=== PATIENT | male | born 1975 | race Caucasian/White ===

== ENCOUNTER 2016-06-05 18:01 | Emergency (ER) | payer OTHER ==
[~2016-06-05] VITALS: Ht 172.7 cm; Wt 81.6 kg
[~2016-06-05 18:01] MED LIST: ALBUTEROL0.09 MG/A1 INH; ALPH-E-MIXED-4400 IU PO; ATIVAN0.5 M1 PO; FENOFIBRATE160 M1 PO; FISH OIL CONCEN1 SGL PO; MUCINEX DM 60 M1 TER PO; MULTIVITAMIN1 TAB PO; OLANZAPINE15 MG PO; ZOFRAN4 M1 SL
--- NOTE | 2016-06-05 19:42 | ED GI/GU/ABDOMINAL COMPLAINT ---
History of Present Illness General Chief Complaint: General Adult Stated Complaint: SOB, NAUSEA, CHEST PRESSURE Source: patient, old records Exam Limitations: no limitations Vital Signs & Intake/Output Vital Signs & Intake/Output Vital Signs Date Time Temp Pulse Resp B/P Pulse O2 O2 Flow FiO2 Ox Delivery Rate 06/05 2115 97.9 101 18 161/104 98 06/05 1999 Room Air 06/05 1814 97.1 100 16 132/91 99 Room Air Allergies Coded Allergies: aripiprazole (AKATHISIA 08/22/15) Reconcile Medications Albuterol Sulfate (Albuterol Sulfate Hfa) 0.09 MG/Actuation LENCHO 2 PUFF INH Q4- 6 PRN PRN SHORTNESS OF BREATH 90 MCG PER PUFF Fenofibrate 160 MG TAB 1 TAB PO DAILY CHOLESTEROL (Reported) Lorazepam (Ativan) 0.5 MG TABLET 1 TAB PO DAILY PRN ANXIETY Lorazepam (Ativan) 0.5 MG TABLET 1 TAB PO BIDP PRN ANXIETY EIGHT TABS...[id number] Olanzapine 15 MG TAB 1 TAB PO DAILY MENTAL HEALTH (Reported) OMEGA-3 FATTY ACIDS (Fish Oil Concentrate) 1,000 MG CAPSULE 1 SGL PO DAILY SUPPLEMENT (Reported) Vitamin E ([id number]) 400 IU SGL 2 SGL PO DAILY SUPPLEMENT (Reported) Triage Note: 40 YEAR OLD MALE STATES TAHT HE HAS BEEN HAVING A CHEST PRESSURE FOR THE PAST COUPLE OF DAYS. ALSO COMPLAINS OF BOUGHTS OF NAUSEA. EKG COMPLETED AND SHOWN TO MD. Triage Nurses Notes Reviewed? yes HPI: Patient presents with nausea and intermittent chest pain. Patient states that the nausea lasting approximately 20 minutes resolving on its own. There's been no vomiting. There is no diarrhea. Patient denies any abdominal pain. Patient 's other complaint is intermittent chest pain. Patient states that he feels anxious and then he feels like he can't breathe and then he gets left-sided chest pressure that lasts a few seconds and then goes away. The symptoms have been going on for the past few months. Patient states he has seen a nurse navigator for this and was told that everything was normal. Patient denies any current pain. His last episode of chest pain was earlier this morning. The chest pain was not associated with nausea. Past History Travel History Traveled to [place] past 21 day No Medical History Any Pertinent Medical History? 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 No Review of Systems Review of Systems Constitutional: Reports: no symptoms. EENTM: Reports: no symptoms. Respiratory: Reports: no symptoms. Cardiovascular: Reports: see HPI, chest pain. GI: Reports: see HPI, nausea. Genitourinary: Reports: no symptoms. Musculoskeletal: Reports: no symptoms. Skin: Reports: no symptoms. Neurological/Psychological: Reports: no symptoms. Hematologic/Endocrine: Reports: no symptoms. Immunologic/Allergic: Reports: no symptoms. All Other Systems: Reviewed and Negative Physical Exam Physical Exam General Appearance: well developed/nourished, alert, awake, anxious, mild distress Head: atraumatic, normal appearance Eyes: Bilateral: PERRL, EOMI, other (ANICTERIC). Ears, Nose, Throat, Mouth: hearing grossly normal, moist mucous membrane Neck: normal inspection, supple, full range of motion Respiratory: normal breath sounds, chest non-tender, no respiratory distress, lungs clear Cardiovascular: regular rate/rhythm, normal peripheral pulses Gastrointestinal: normal bowel sounds, soft, non-tender, no organomegaly Back: normal inspection, normal range of motion Extremities: normal range of motion Neurologic/Psych: no motor/sensory deficits, awake, alert, oriented x 3, normal mood/affect Skin: intact, normal color, warm/dry Core Measures ACS in differential dx? Yes ASA ordered for poss ACS? No-ACS ruled out Severe Sepsis Present: No Septic Shock Present: No Progress Differential Diagnosis: AAA, AMI, appendicitis, biliary colic, colon cancer, cholecystitis, diverticulitis, gastritis, hepatitis, ischemic bowel, inflamm bowel dis, pancreatitis Plan of Care: Orders Procedure Date/time Status Telemetry/Screen Printer 06/05 1939 Active TROPONIN LEVEL 06/05 1939 Complete COMPREHENSIVE METABOLIC PANEL 06/05 1939 Complete CBC WITHOUT DIFFERENTIAL 06/05 1939 Complete EKG 06/05 180 Active Laboratory Tests 06/05/16 1950: Anion Gap 17 H, Estimated GFR > 60, BUN/Creatinine Ratio 16.7, Glucose 88, Calcium 10.2, Total Bilirubin 0.6, AST 35, ALT 71, Alkaline Phosphatase 41, Troponin I < 0.01, Total Protein 7.7, Albumin 4.7, Globulin 3.0, Albumin/ Globulin Ratio 1.6, CBC w Diff NO MAN DIFF REQ, RBC 4.77, MCV 87.7, MCH 30.3, RDW 12.9, MPV 8.2, Gran % 73.6, Lymphocytes % 19.3 L, Monocytes % 6.5, Eosinophils % 0.2, Basophils % 0.4, Absolute Granulocytes 4.7, Absolute Lymphocytes 1.2, Absolute Monocytes 0.4, Absolute Eosinophils 0, Absolute Basophils 0, PUBS MCHC 34.5 Initial ED EKG: NSR, no ST T wave changes Prior EKG: unchanged Rhythm Strip: normal sinus rhythm Comments: Patient drank juice in the emergency department without difficulty. Patient denies any further episodes of chest pain. Departure Departure Disposition: HOME OR SELF CARE Condition: Stable Clinical Impression Primary Impression: Upper abdominal pain, unspecified Secondary Impressions: Chest pain, unspecified Qualifiers: Chest pain type: other chest pain Qualified Code: R07.89 - Other chest pain Referrals: ANGELA FRANCISCO MD (PCP/Family) Additional Instructions: RETURN IF SYMPTOMS WORSEN OR FOR ANY CONCERNS Departure Forms: Customer Survey General Discharge Information
[2016-06-05 20:15] LABS: ABSOLUTE BASOPHIL COUNT 0 /CUMM (0.0-0.2); ABSOLUTE EOSINOPHIL COUNT 0 /CUMM (0.0-0.7); ABSOLUTE GRANULOCYTE CT 4.7 /CUMM (1.4-6.5); ABSOLUTE LYMPH COUNT 1.2 /CUMM (1.2-3.4); ABSOLUTE MONOCYTE COUNT 0.4 /CUMM (0.10-0.60); BASOPHIL % 0.4 % (0.0-2.0); EOSINOPHIL % 0.2 % (0-5); GRANULOCYTE % 73.6 % (42.2-75.2); HEMATOCRIT 41.8 % (42-52); MEAN CORPUSCULAR HGB 30.3 PG (27.0-31.0); MEAN CORPUSCULAR HGB CONC 34.5 G/DL (33.0-37.0); MEAN CORPUSCULAR VOLUME 87.7 FL (80.0-94.0); MEAN PLATELET VOLUME 8.2 FL (7.4-10.4); PLATELET COUNT 231 /CUMM (130-400); RBC DISTRIBUTION WIDTH 12.9 % (11.5-14.5); RED BLOOD CELL CT 4.77 /CUMM (4.70-6.10); WHITE BLOOD CELL COUNT 6.4 /CUMM (4.8-10.8)
[2016-06-05 21:30] VITALS: BP 152/94
[2016-06-05] MEDS ORDERED: TRAZODONE HCL50 M1 PO (21:32)
== END 2016-06-05 21:35 ==
LOC: ERH 18:01
PROVIDERS: Emergency Medicine
DX: R10.10 Upper abdominal pain, unspecified (principal); R07.89 Other chest pain
CPT/HCPCS: 93005; 93010

== ENCOUNTER 2016-08-08 05:48 | Emergency (ER) | payer OTHER ==
[~2016-08-08] VITALS: Ht 172.7 cm; Wt 81.6 kg
[~2016-08-08 05:48] MED LIST changes: +TRAZODONE HCL50 M1 PO
--- NOTE | 2016-08-08 06:02 | ED CARDIAC/CP/PALPITATIONS ---
History of Present Illness General Chief Complaint: General Adult Stated Complaint: "I FEEL PRESSURE IN MY CHEST PRESSURE [id number] AGO" Source: patient, old records Exam Limitations: no limitations Vital Signs & Intake/Output Vital Signs & Intake/Output Vital Signs Date Time Temp Pulse Resp B/P Pulse O2 O2 Flow FiO2 Ox Delivery Rate 08/08 844 97.0 80 20 123/86 98 Room Air 08/08 0617 98.0 98 20 122/86 08/08 0528 95 Room Air 08/08 626 97.8 98 18 134/77 95 Room Air 08/08 0513 97.7 105 18 139/85 95 Room Air Allergies Coded Allergies: aripiprazole (AKATHISIA 08/22/15) Reconcile Medications Albuterol Sulfate (Albuterol Sulfate Hfa) 0.09 MG/Actuation LENCHO 2 PUFF INH Q4- 6 PRN PRN SHORTNESS OF BREATH 90 MCG PER PUFF Fenofibrate 160 MG TAB 1 TAB PO DAILY CHOLESTEROL (Reported) Lorazepam 0.5 MG TABLET 1 TAB PO DAILY NEEDED ANIXETY (Reported) Olanzapine 15 MG TAB 1 TAB PO DAILY MENTAL HEALTH (Reported) Olanzapine 10 MG TABLET 1 TAB PO QPM SLEEP (Reported) OMEGA-3 FATTY ACIDS (Fish Oil Concentrate) 1,000 MG CAPSULE 1 SGL PO DAILY SUPPLEMENT (Reported) Trazodone HCl 50 MG TABLET 1 TAB PO QPM SLEEP (Reported) Vitamin E ([id number]) 400 IU SGL 2 SGL PO DAILY SUPPLEMENT (Reported) Triage Nurses Notes Reviewed? yes HPI: Patient presents with a 20 minute history of congested pressure feeling in the left central portion of his chest. The pain was constant and then relieved when he came into the emergency room. There was no radiation. The pressure was moderate when he had it and is currently 0. There are no aggravating or mitigating factors. Patient states that he has had these symptoms a few times in the past so wants to make sure he does not have congestive heart failure. Patient denies any dyspnea on exertion or orthopnea. There is no anorexia. Patient states when he gets this congested pressure feeling he also feels nauseous. Patient has not thrown up. Patient denies any diaphoresis. (CATHERINE HAY,RAIN [place]) Past History Travel History Traveled to [place] past 21 day No Medical History Any Pertinent Medical History? 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 No (CATHERINE HAY,RAIN [place]) Review of Systems Review of Systems Constitutional: Reports: no symptoms. EENTM: Reports: no symptoms. Respiratory: Reports: no symptoms. Cardiovascular: Reports: see HPI, chest pain. GI: Reports: see HPI, nausea. Genitourinary: Reports: no symptoms. Musculoskeletal: Reports: no symptoms. Skin: Reports: no symptoms. Neurological/Psychological: Reports: no symptoms. Hematologic/Endocrine: Reports: no symptoms. Immunologic/Allergic: Reports: no symptoms. All Other Systems: Reviewed and Negative (CATHERINE HAY,RAIN [place]) Physical Exam Physical Exam General Appearance: well developed/nourished, alert, awake, anxious, mild distress Head: atraumatic, normal appearance Eyes: Bilateral: PERRL, EOMI. Ears, Nose, Throat: normal pharynx, normal ENT inspection, hearing grossly normal Neck: normal inspection, supple, full range of motion, NO JVD Respiratory: normal breath sounds, chest non-tender, no respiratory distress, lungs clear Cardiovascular: regular rate/rhythm, normal peripheral pulses Gastrointestinal: normal bowel sounds, soft, non-tender, no organomegaly Back: normal inspection, normal range of motion Extremities: normal inspection, normal capillary refill, normal range of motion, no edema Neurologic/Psych: no motor/sensory deficits, awake, alert, oriented x 3, normal gait, normal mood/affect Skin: intact, normal color, warm/dry Lymphatic: no anterior cervical ellen Core Measures ACS in differential dx? Yes Severe Sepsis Present: No Septic Shock Present: No (CATHERINE HAY,RAIN [place]) Progress Differential Diagnosis: AMI, CHF/pulm edema, musculoskeletal pain, myocarditis, pericarditis Plan of Care: Orders Procedure Date/time Status Regular Diet 08/08 B Active TROPONIN LEVEL 08/08 1015 Complete Telemetry/Mexican Food Cook 08/08 0609 Active TROPONIN LEVEL 08/08 0558 Complete COMPREHENSIVE METABOLIC PANEL 03/08 0558 Complete CBC WITHOUT DIFFERENTIAL 08/08 557 Complete EKG 08/08 554 Active Laboratory Tests 08/08/16 1013: Troponin I < 0.01 08/08/16 0614: Anion Gap 14, Estimated GFR > 60, BUN/Creatinine Ratio 14.4, Glucose 145 H, Calcium 10.1, Total Bilirubin 0.5, AST 46, ALT 87 H, Alkaline Phosphatase 46, Troponin I < 0.01, Total Protein 7.3, Albumin 4.5, Globulin 2.8, Albumin/ Globulin Ratio 1.6, CBC w Diff NO MAN DIFF REQ, RBC 4.89, MCV 87.7, MCH 30.2, RDW 13.6, MPV 7.6, Gran % 63.0, Lymphocytes % 31.0, Monocytes % 5.3, Eosinophils % 0.2, Basophils % 0.5, Absolute Granulocytes 4.8, Absolute Lymphocytes 2.4, Absolute Monocytes 0.4, Absolute Eosinophils 0, Absolute Basophils 0, PUBS MCHC 34.4 Initial ED EKG: NSR, no ST T wave changes Prior EKG: unchanged Rhythm Strip: normal sinus rhythm Hand-Off Endorsed To: YAMINI HAMPTON MD Endorsed Time: 0700 Pending: labs Comments: Shortly after arriving to the emergency department patient began to dry heave. Patient states that that pressure congested feeling came back. (CATHERINE HAY,RAIN [place]) Comments: 2nd troponin negative. POC discussed with patient (YAMINI HAMPTON MD) Departure Departure Condition: Stable Clinical Impression Primary Impression: Chest pain, unspecified Departure Forms: Customer Survey General Discharge Information (RAIN ALEXANDER MD) Departure Time of Disposition: 1104 Disposition: HOME OR SELF CARE Referrals: Dick WESLEY MD Call for cardiology follow up ANGELA FRANCISCO MD (PCP/Family) Prescriptions: Current Visit Scripts Ondansetron (Zofran Odt) 1 TAB SL TID PRN nausea #15 TAB (YAMINI HAMPTON MD) Critical Care Note Critical Care Note Critical Care Time: non-applicable (RAIN ALEXANDER MD)
[2016-08-08 06:21] LABS: ABSOLUTE BASOPHIL COUNT 0 /CUMM (0.0-0.2); ABSOLUTE EOSINOPHIL COUNT 0 /CUMM (0.0-0.7); ABSOLUTE GRANULOCYTE CT 4.8 /CUMM (1.4-6.5); ABSOLUTE LYMPH COUNT 2.4 /CUMM (1.2-3.4); ABSOLUTE MONOCYTE COUNT 0.4 /CUMM (0.10-0.60); BASOPHIL % 0.5 % (0.0-2.0); EOSINOPHIL % 0.2 % (0-5); HEMATOCRIT 42.9 % (42-52); MEAN CORPUSCULAR HGB 30.2 PG (27.0-31.0); MEAN CORPUSCULAR HGB CONC 34.4 G/DL (33.0-37.0); MEAN CORPUSCULAR VOLUME 87.7 FL (80.0-94.0); MEAN PLATELET VOLUME 7.6 FL (7.4-10.4); PLATELET COUNT 243 /CUMM (130-400); RBC DISTRIBUTION WIDTH 13.6 % (11.5-14.5); RED BLOOD CELL CT 4.89 /CUMM (4.70-6.10); WHITE BLOOD CELL COUNT 7.7 /CUMM (4.8-10.8)
[2016-08-08] MEDS ORDERED: OLANZAPINE10 M1 PO (06:30)
[2016-08-08] MEDS ORDERED: LORAZEPAM0.5 M1 PO (06:30)
[2016-08-08 08:45] VITALS: BP 123/86
[2016-08-08] MEDS ORDERED: ZOFRAN ODT4 M1 SL (11:04)
[2016-08-08] MEDS ORDERED: ATIVAN0.5 M1 PO (11:09)
== END 2016-08-08 11:48 ==
LOC: ERH 05:48
PROVIDERS: Emergency Medicine
DX: R07.89 Other chest pain (principal)
CPT/HCPCS: 93005; 93010; J3101

== ENCOUNTER 2016-11-16 13:18 | Emergency (ER) | payer OTHER ==
[~2016-11-16] VITALS: Ht 172.7 cm; Wt 81.6 kg
[~2016-11-16 13:18] MED LIST changes: +LORAZEPAM0.5 M1 PO; +OLANZAPINE10 M1 PO; +ZOFRAN ODT4 M1 SL
[2016-11-16 13:23] VITALS: BP 159/90
--- NOTE | 2016-11-16 14:21 | ED GENERAL ADULT ---
History of Present Illness General Chief Complaint: General Adult Stated Complaint: MULTI COMPLAINTS Source: patient Exam Limitations: poor historian Vital Signs & Intake/Output Vital Signs & Intake/Output Vital Signs Date Time Temp Pulse Resp B/P B/P Pulse O2 O2 Flow FiO2 Mean Ox Delivery Rate 11/16 1323 97.9 138 20 159/90 97 Room Air Allergies Coded Allergies: aripiprazole (AKATHISIA 08/22/15) Reconcile Medications Fenofibrate 160 MG TABLET 1 TAB PO DAILY CHOLESTEROL (Reported) Fenofibrate 160 MG TABLET 1 TAB PO DAILY HLD Fenofibrate 160 MG TABLET 1 TAB PO DAILY HLD Olanzapine 10 MG TABLET 1 TAB PO QPM SLEEP (Reported) Trazodone HCl 50 MG TABLET 1 TAB PO QPM SLEEP (Reported) Ziprasidone HCl 20 MG CAPSULE 1 CAP PO BID UNKNOWN (Reported) Triage Note: PT REQUESTS REFILL ON GEODON AND TRICOR. PT STATES HE RAN OUT AND FEELS WEAK AND MINIMIZED. TOOK GEODON TODAY BUT RAN OUT OF FENOFIBRATE SATURDAY.PT STATES HE FEELS A LITTLE BIT LIGHT AND HIS HEART IS SCARED. DENIES SI/HI Triage Nurses Notes Reviewed? yes Onset: Abrupt Duration: hour(s): (less than 1 hour), gone now, resolved prior to arrival Timing: single episode today Severity: mild, moderate Severity Numbers: 1 No Modifying Factors: none HPI: 41-year-old male with a past medical history of anxiety bipolar disorder asthma and hyperlipidemia presents for a medication refill. Patient reports he ran out of his TriCor 2 or 3 days ago. since he ran out and having anxiety about his health and is worried that something may happen to his heart due to elevated cholesterol. He denies any chest pain shortness of breath palpitations coughing hemoptysis suicidal ideation homicidal ideation. She does report that "his heart is sad" and asked with this means he says that he is worried something may happen to his heart due to him not taking his cholesterol medication. he reports he currently feels well and that his symptoms resolved about 20 or 30 minutes before presenting to the emergency department. He denies any drug use. No associated symptoms. Patient has a primary care doctor that he can follow-up with this week. (CLEMENTINA CEDENO PA-C) Past History Travel History Traveled to [place] past 21 day No Medical History Any Pertinent Medical History? 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 Yes (CLEMENTINA CEDENO PA-C) Review of Systems Review of Systems Constitutional: Reports: no symptoms. EENTM: Reports: no symptoms. Respiratory: Reports: no symptoms. Cardiovascular: Reports: no symptoms. GI: Reports: no symptoms. Genitourinary: Reports: no symptoms. Musculoskeletal: Reports: no symptoms. Skin: Reports: no symptoms. Neurological/Psychological: Reports: no symptoms. Hematologic/Endocrine: Reports: no symptoms. Immunologic/Allergic: Reports: no symptoms. All Other Systems: Reviewed and Negative (CLEMENTINA CEDENO PA-C) Physical Exam Physical Exam General Appearance: well developed/nourished, no apparent distress, alert, awake , anxious Head: atraumatic, normal appearance Eyes: Bilateral: normal appearance, PERRL, EOMI. Ears, Nose, Throat: normal pharynx, normal ENT inspection Neck: normal inspection, supple, full range of motion, no midline tenderness Respiratory: normal breath sounds, chest non-tender, no respiratory distress, lungs clear Cardiovascular: regular rate/rhythm, normal peripheral pulses Peripheral Pulses: 2+ tibialis posterior (R), 2+ tibialis posterior (L), 2+ dorsalis pedis (R), 2+ dorsalis pedis (L) Gastrointestinal: normal bowel sounds, soft, non-tender, no organomegaly Back: normal inspection, normal range of motion, no vertebral tenderness Extremities: normal inspection, normal capillary refill, normal range of motion, no edema Neurologic/Psych: no motor/sensory deficits, awake, alert, oriented x 3, normal gait, normal mood/affect Reflexes: 2+: knee (R), knee (L). Skin: intact, normal color, warm/dry Lymphatic: no anterior cervical ellen Core Measures ACS in differential dx? Yes CVA/TIA Diagnosis: No Severe Sepsis Present: No Septic Shock Present: No (CLEMENTINA CEDENO PA-C) Progress Differential Diagnoses I considered the following diagnoses in my evaluation of the patient: Panic attack, acute coronary syndrome, medication side effect, viral syndrome, arrhythmia, electrolyte abnormality Plan of Care: Orders Procedure Date/time Status EKG 11/16 1330 Active EKG shows sinus tach but is unchanged from previous. he currently denies any chest pain or shortness of breath and is nontoxic appearing on exam. No HI or SI present. Patient be given a refill for TriCor and told to follow up with his primary care doctor. Advised patient to return to emergency department with any chest pain shortness of breath or any other concerns. (CLEMENTINA CEDENO PA-C) Initial ED EKG: normal intervals, normal p-waves, normal QRS complex, no ST T wave changes, sinus tach Prior EKG: unchanged (CLEMENTINA CEDENO PA-C) Departure Departure Disposition: HOME OR SELF CARE Condition: Stable Clinical Impression Primary Impression: Anxiety about health Referrals: ANGELA FRANCISCO MD (PCP/Family) Additional Instructions: Continue to take all home medications as directed. Follow-up this week with your primary care doctor. Return to the emergency department with any concerns. Departure Forms: Customer Survey General Discharge Information Prescriptions: Current Visit Scripts Fenofibrate 1 TAB PO DAILY #7 TAB Fenofibrate 1 TAB PO DAILY #7 TAB (CLEMENTINA CEDENO PA-C) PA/IS CONSULTANT Co-Sign Statement Statement: ED Attending supervision documentation- [] I saw and evaluated the patient. I have also reviewed all the pertinent lab results and diagnostic results. I agree with the findings and the plan of care as documented in the PA's/IS CONSULTANT's documentation. [x] I have reviewed the ED Record and agree with the PA's/IS CONSULTANT's documentation. [] Additions or exceptions (if any) to the PAs/IS CONSULTANT's note and plan are summarized below: [] (EMILY MONTELONGO DO) Critical Care Note Critical Care Note Critical Care Time: non-applicable (CLEMENTINA CEDENO PA-C)
[2016-11-16] MEDS ORDERED: ZIPRASIDONE HCL20 M1 PO (14:32)
[2016-11-16] MEDS ORDERED: FENOFIBRATE160 M1 PO ×2 (14:41→15:10)
== END 2016-11-16 15:34 ==
LOC: ERH 13:18
DX: F41.9 Anxiety disorder, unspecified (principal)
CPT/HCPCS: 93005; 93010; 99281

== ENCOUNTER 2016-11-28 04:14 | Emergency (ER) | payer OTHER ==
[~2016-11-28] VITALS: Ht 180.3 cm; Wt 83.9 kg
[~2016-11-28 04:14] MED LIST changes: +ZIPRASIDONE HCL20 M1 PO
[2016-11-28 04:26] VITALS: BP 149/94
--- NOTE | 2016-11-28 04:57 | ED PSYCHIATRIC COMPLAINT ---
History of Present Illness General Chief Complaint: General Adult Stated Complaint: PER PT NEEDS DOSE OF GEODON? Source: patient Exam Limitations: no limitations Vital Signs & Intake/Output Vital Signs & Intake/Output ED Intake and Output 11/29 0000 11/28 1200 Intake Total 0 Output Total Balance 0 Intake, Oral 0 Patient 185 lb Weight Weight Reported by Patient Measurement Method Allergies Coded Allergies: aripiprazole (AKATHISIA 11/28/16) Reconcile Medications Fenofibrate 160 MG TABLET 1 TAB PO DAILY CHOLESTEROL (Reported) Olanzapine 10 MG TABLET 1 TAB PO QPM SLEEP (Reported) Trazodone HCl 50 MG TABLET 1 TAB PO QPM SLEEP (Reported) Ziprasidone HCl 20 MG CAPSULE 40 MG PO BID MENTAL HEALTH (Reported) Triage Note: PT TO ED FOR DOSE OF GEODON. 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 Triage Nurses Notes Reviewed? yes HPI: Patient presents for worsening schizoaffective disorder. Patient states that he was just discharged from [facility] this morning but was unable to get his medications because he does not have his city driver's license for identification. His city driver's license is with his sister who is now vacationing in the [facility]. Patient will be able to get his medications later today through his mother. He is requesting a dose of Geodon. The patient denies SI or HI. He denies any other current complaints. Past History Travel History Traveled to [place] past 21 day No Medical History Any Pertinent Medical History? 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 No Review of Systems Review of Systems Constitutional: Reports: no symptoms. EENTM: Reports: no symptoms. Respiratory: Reports: no symptoms. Cardiovascular: Reports: no symptoms. GI: Reports: no symptoms. Genitourinary: Reports: no symptoms. Musculoskeletal: Reports: no symptoms. Skin: Reports: no symptoms. Neurological/Psychological: Reports: no symptoms. Hematologic/Endocrine: Reports: no symptoms. Immunologic/Allergic: Reports: no symptoms. All Other Systems: Reviewed and Negative Physical Exam Physical Exam General Appearance: SEE BELOW Neurological/Psychiatric: SEE BELOW Comments: General: Alert, calm, cooperative Head: Normocephalic, atraumatic Eyes: Normal inspection, no nystagmus, EOMI Ears: Normal inspection Nose: Normal inspection Throat: Moist mucosa Neck: Supple, no goiter Heart: Regular rate and rhythm, no murmurs rubs or gallops Lungs: Clear to auscultation bilaterally with good air entry Abdomen: Soft nontender nondistended, normal bowel sounds Chest: Nontender Extremities: Normal range of motion grossly, no tremors present, no cyanosis clubbing or edema of the upper extremities Neurologic: cranial nerves II through XII grossly intact, speech clear, gait normal Psychiatric: No apparent delusions or hallucinations, no pressured speech or thought blocking SAD PERSONS Done? patient not suicidal Progress Differential Diagnosis: schizoaffective disorder, schizophrenia, acute psychosis Plan of Care: Current Medications Sig/Stu Start time Last Medication Dose Stop Time Status Admin Ziprasidone 60 MG ONCE ONE 11/28 0500 UNVr (Geodon 60 MG Cap) 11/28 0501 Continue current medications. (VILMA HAY,EMILY Morales) Departure Departure Disposition: HOME OR SELF CARE Condition: Stable Clinical Impression Primary Impression: Schizoaffective disorder Qualifiers: Schizoaffective disorder type: unspecified Qualified Code: F25.9 - Schizoaffective disorder, unspecified Referrals: ANGELA FRANCISCO MD (PCP/Family) Additional Instructions: Continue your current medications. Follow-up as outlined by [facility]. Return if any concerns or sudden worsening. Departure Forms: Customer Survey General Discharge Information
== END 2016-11-28 05:25 ==
LOC: ERH 04:14
DX: F25.9 Schizoaffective disorder, unspecified (principal)

== ENCOUNTER 2017-09-06 01:32 | Emergency (ER) | payer OTHER, MEDICARE ==
[~2017-09-06] VITALS: Ht 162.6 cm; Wt 81.6 kg
[~2017-09-06 01:32] MED LIST changes: +ALPRAZOLAM0.5 M4 PO; +ATIVAN1 M1 PO; +FENOFIBRATE145 M1 PO; +GABAPENTIN300 M2 PO; +PROVENTIL HFA6.7 GM INH; +VENTOLIN HFA18 GM INH; -ZIPRASIDONE HCL20 M1 PO; +ZIPRASIDONE HCL60 M1 PO
[2017-09-06 01:57] LABS: ABSOLUTE BASOPHIL COUNT 0.1 /CUMM (0.0-0.2); ABSOLUTE EOSINOPHIL COUNT 0.1 /CUMM (0.0-0.7); ABSOLUTE GRANULOCYTE CT 7.5 /CUMM (1.4-6.5); ABSOLUTE LYMPH COUNT 2.6 /CUMM (1.2-3.4); ABSOLUTE MONOCYTE COUNT 0.9 /CUMM (0.10-0.60); BASOPHIL % 0.9 % (0.0-2.0); EOSINOPHIL % 0.7 % (0-5); GRANULOCYTE % 67.7 % (42.2-75.2); HEMATOCRIT 46.9 % (42-52); MEAN CORPUSCULAR HGB 30.7 PG (27.0-31.0); MEAN CORPUSCULAR VOLUME 87.9 FL (80.0-94.0); MEAN PLATELET VOLUME 7.7 FL (7.4-10.4); PLATELET COUNT 260 /CUMM (130-400); RBC DISTRIBUTION WIDTH 12.7 % (11.5-14.5); RED BLOOD CELL CT 5.34 /CUMM (4.70-6.10); WHITE BLOOD CELL COUNT 11.1 /CUMM (4.8-10.8)
--- NOTE | 2017-09-06 02:43 | ED PSYCHIATRIC COMPLAINT ---
History of Present Illness General Chief Complaint: Psychiatric Related Complaint Stated Complaint: BIBA HI Source: patient, old records, EMS Exam Limitations: no limitations Vital Signs & Intake/Output Vital Signs & Intake/Output Vital Signs Date Time Temp Pulse Resp B/P B/P Pulse O2 O2 Flow FiO2 Mean Ox Delivery Rate 09/06 08 97.1 101 18 135/86 97 Room Air 09/06 0617 97.8 92 18 143/77 97 Room Air 09/06 0231 98.3 105 20 176/87 97 Room Air 09/06 0155 98.4 116 20 190/90 97 Room Air 09/06 0141 Room Air Allergies Coded Allergies: aripiprazole (AKATHISIA 11/28/16) Reconcile Medications Albuterol Sulfate (Proventil Hfa) 90 MCG HFA.AER.AD 2 PUF INH Q4 PRN ASTHMA Albuterol Sulfate (Ventolin Hfa) 90 MCG HFA.AER.AD 2 PUF INH Q4-6 PRN PRN wheeze Fenofibrate Nanocrystallized (Fenofibrate) 145 MG TABLET 1 TAB PO DAILY INCREASED CHOLESTEROL Gabapentin 300 MG CAPSULE 1 CAP PO TID UNKNOWN (Reported) Lorazepam 0.5 MG TABLET 1 TAB PO BIDP PRN ANXIETY (Reported) Ziprasidone HCl 60 MG CAPSULE 1 CAP PO BID MENTAL HEALTH (Reported) Triage Note: PT BIBA FROM HOME FOR +HI, PT UNSURE OF TO WHO. PER PT HX SCHIZOAFFECTIVE DISORDER AND THE PHARMACY WOULD NOT FILL HIS ZIPRASIDONE. PER PT CALLED 911 BECAUSE HE ONLY HAS THESE THOUGHTS WHEN OFF HIS MEDS AND IS AFRAID OF HURTING SOMEONE. CALM AND COOPERATIVE UPON ARRIVAL, SECURITY TO BEDSIDE FOR WANDING. Triage Nurses Notes Reviewed? yes Onset: Just prior to arrival Duration: day(s):, constant, continues in ED, getting worse Timing: recent history Severity: moderate, severe Associated Symptoms: impaired concentration, insomnia HPI: 2 days prior to admission patient ran out of his zisprasidone and has had increased speaking with Daniel and fears he may have killed a childhood friend. He denies fever chills nausea vomiting diarrhea abdominal pain chest pain shortness breath headache dysuria rash bleeding suicidal ideation. (Chris HAY,Fredrick) Past History Travel History Traveled to [place] past 21 day No Medical History Any Pertinent Medical History? see below for history Neurological: NONE EENT: NONE Cardiovascular: hyperlipidemia Respiratory: asthma Gastrointestinal: NONE Hepatic: NONE Renal: NONE Musculoskeletal: NONE Psychiatric: anxiety, bipolar disease, SCHIZOAFFECTIVE D/O Endocrine: NONE Blood Disorders: NONE Cancer(s): NONE BABCOCK TESTER/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: NONE Isolation History: Standard Surgical History Surgical History: non-contributory Psychosocial History Who do you live with Patient/Self What is your primary language Korean Tobacco Use: Never used Family History Hx Contributory? No (Fredrick Perez MD) Review of Systems Review of Systems Constitutional: Reports: no symptoms. EENTM: Reports: no symptoms. Respiratory: Reports: no symptoms. Cardiovascular: Reports: no symptoms. GI: Reports: no symptoms. Genitourinary: Reports: no symptoms. Musculoskeletal: Reports: no symptoms. Skin: Reports: no symptoms. Neurological/Psychological: Reports: see HPI, cognitive dysfunction, confusion. Hematologic/Endocrine: Reports: no symptoms. Immunologic/Allergic: Reports: no symptoms. All Other Systems: Reviewed and Negative (Fredrick Perez MD) Physical Exam Physical Exam General Appearance: well developed/nourished, alert, awake, anxious, severe distress Head: atraumatic, normal appearance Eyes: Bilateral: normal appearance, PERRL, EOMI. Ears, Nose, Throat: normal pharynx, normal ENT inspection, hearing grossly normal Neck: normal inspection, supple, full range of motion, no midline tenderness Respiratory: normal breath sounds, chest non-tender, no respiratory distress, quiet respiration, lungs clear Cardiovascular: regular rate/rhythm, normal peripheral pulses, norml femoral pulses equa Gastrointestinal: normal bowel sounds, soft, non-tender, no organomegaly Extremities: normal range of motion, no ligament instability Neurological/Psychiatric: no motor/sensory deficits, awake, agitated, alert, anxious, physical therapist II-XII nml as tested, oriented x 3 Appearance/Memory/Insight: disheveled, impaired insight Behavoir/Eye Contact/Speech: cooperative, normal speech Thoughts/Hallucinations: delusions, orthodox Skin: intact, normal color, warm/dry SAD PERSONS Done? patient not suicidal (Fredrick Perez MD) Progress Differential Diagnosis: drug intoxication, drug overdose, drug withdrawal, electrolyte abnormality, hypoglycemia Plan of Care: Orders Procedure Date/time Status Regular Diet 09/06 B Active Continuous Observation Monitor 09/06 05 Active Continuous Observation Monitor 09/06 141 Active URINE DRUG SCREEN FOR ER ONLY 09/06 141 Complete ETHANOL 09/06 141 Complete COMPREHENSIVE METABOLIC PANEL 09/06 141 Complete CBC WITHOUT DIFFERENTIAL 09/06 141 Complete ED CRISIS PSYCH CONSULT 09/06 141 Active Current Medications Sig/Stu Start time Last Medication Dose Stop Time Status Admin Albuterol Sulfate 2 PUF Q4-6 PRN PRN 09/06 199 UNVr (Ventolin) Lorazepam 0.5 MG .[BIDP] PRN 09/06 199 UNVr 09/06 (Ativan) 09/13 015 0231 Gabapentin 300 MG TID 09/06 154 UNVr 09/06 (Neurontin) 1005 Ziprasidone 60 MG BID 09/06 154 UNVr 09/06 (Geodon 60 MG Cap) 1005 Laboratory Tests 09/06/17 0250: Urine Opiates Screen < 100, Methadone Screen < 40, Barbiturate Screen < 60, Ur Phencyclidine Scrn < 6.00, Amphetamines Screen < 100, U Benzodiazepines Scrn < 85, Urine Cocaine Screen < 50, Urine Cannabis Screen < 5.00 09/06/17 0150: Anion Gap 19 H, Estimated GFR > 60, BUN/Creatinine Ratio 15.0, Glucose 132 H, Calcium 10.5 H, Total Bilirubin 1.0, AST 36, ALT 39, Alkaline Phosphatase 52, Total Protein 8.5 H, Albumin 5.1 H, Globulin 3.4, Albumin/Globulin Ratio 1.5, CBC w Diff NO MAN DIFF REQ, RBC 5.34, MCV 87.9, MCH 30.7, MCHC 35.0, RDW 12.7, MPV 7.7, Gran % 67.7, Lymphocytes % 23.0, Monocytes % 7.7, Eosinophils % 0.7, Basophils % 0.9, Absolute Granulocytes 7.5 H, Absolute Lymphocytes 2.6, Absolute Monocytes 0.9 H, Absolute Eosinophils 0.1, Absolute Basophils 0.1, Serum Alcohol < 10.0 Hand-Off Endorsed To: Miki Mejia MD Endorsed Time: 0700 Pending: consult (Fredrick Perez MD) Comments: 09/06/2017 7:23:01 AM patient signed out to me 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 09/06/2017 10:29:56 AM cristhian has been evaluated by the crisis condition and felt to be stable for outpatient management. (Jackie HAY,Miki Zamora) Departure Departure Condition: Stable Clinical Impression Primary Impression: Schizophrenia, acute Referrals: Cleve Adam MD (PCP/Family) Departure Forms: Customer Survey General Discharge Information (Chris HAY,Fredrick) Departure Disposition: HOME OR SELF CARE Additional Instructions: Follow-up with your counseling sessions at [facility] and your upcoming medication appointment as well. Notify your primary care physician of this emergency Department visit and treatment plan. Return if any concerns or sudden worsening. Thank you for choosing the [facility] Emergency Department for your care. It was a pleasure to serve you today. Miki Mejia M.D. [facility] (Jackie HAY,Miki Zamora)
[2017-09-06 08:02] VITALS: BP 135/86
--- NOTE | 2017-09-06 09:53 | ED PSYCH CRISIS CONSULTATION ---
Crisis Consult Basic Assessment Date of Consult: 09/06/17 Responsible Person/Accompanied By: self Insurance Authorization: Insurance #1: Insurance name: MEDICARE A Phone number: Policy number: [id number] Group number: Authorization number: ED Provider: Patient's ED Provider: Miki Mejia MD Primary Care Physician: Patient's PCP: Cleve Adam MD PCP's Current Psychiatrist: Myla Garcia APRN Chief Complaint: Psychiatric Related Complaint Patient's Quote: Last night while laying in bed, had thoughts I killed someone in 5th grade Present Illness: Pt self presents to the ED reporting that he is out of his ziprasidone. Pt reports he came to the ED last night because he was laying in bed and was having visions and thoughts that he killed his friend in 5th grade. Pt said he speaks to Daniel daily and through out the day/night yesterday Daniel told pt that "if you don't know what you did then you won't go through my smith". Pt denies HI/SI and denies he felt homicidal last night. He reports he was just trying to distinguish between what was real and what was not. He reports he spoke to his mother who told him he did not kill his friend when he was in 5th grade. The pt seems satisfied with the confirmation from his mother that he did not kill anyone in 5th grade. Pt reports he has been without his medication for 2 days and he is extremely anxious about not being able to have access to his medication. Pt report he tried to pick the prescription up and the refills were denied. Pt is a client at [facility] and Myla Garcia APRN is the prescriber. left for Barbara Manriquez [phone] ([facility] liaison). Crisis spoke with [facility] in [place] ([phone]) and learned that pt picked up ziprasidone 60mg (30 day supply) on 08/23/17 and paid $3. Pt can get another refill on 09/12/17. Pt doesn't recall picking this medication up. Patient reports he would feel safe going home if he had "plenty of medication". When asked what plenty of medication was defined as, pt was able to articulate that if he had enough medication to last until his next refill he would feel as though that would be enough medication. Of note, patient's utox was negative and BAL was zero. Crisis completed the C-SSRS. Pt's only risk factor on the scale was previous psychiatric diagnoses/treatment history. Pt has the following protective factors : identifies a reason for living and has a supportive family. Pt denies SI in his entire lifetime. [facility] called patient's mother, Kaye Ann ([phone]). Mom stated that she was in the ED. Crisis met with mom and pt together. Mom reported that she believes she saw a bottle of the ziprasidone on his table. Pt was adamant that he didn't see it and it's not at home. Mother left to go home to bring the bottle to the ED. Mom showed crisis and pt unopened stock bottle of ziprasidone. Pt asked mom where it was and she told him. Pt was relieved that he has a full bottle of medication. Pt reports he feels safe to go home. Mother reports pt is safe to go home. Crisis received return call from Barbara @ [facility]. Patient's next group at [facility] is 09/12/17 at 10:30 a.m. and next appointment with Myla Garcia APRN is @1:30 p.m. The following safety plan was developed with the pt and mother: 1. Mother will stay with patient in his home through Saturday. 2. Mother and pt will fill patient's pill box with him for 1 week in order to organize his medication 3. Patient or family will call [phone] or return to ED if patient feels as though his symptoms are unmanageable Crisis consulted with Dr. Davison. Pt to be discharged home, follow the above safety plan and [facility]. Patient's Address: [address] [place] [address] Other Phone Number: Who Do You Live With? Patient/Self Family/Informants Interviewed: spoke with mother Kaye Ann (in person), Barbara Manriquez [facility] ([phone] Allergies - Coded Allergies: aripiprazole (AKATHISIA 11/28/16) Current Medications - Scheduled Medications Fenofibrate Nanocrystallized (Fenofibrate) 145 MG TABLET 1 TAB PO DAILY INCREASED CHOLESTEROL #30 TAB Prescribed by Reji Pat MD on 08/23/17 Gabapentin 300 MG CAPSULE 1 CAP PO TID UNKNOWN #90 (Reported) Entered as Reported by Lj Arriaga on 02/11/17 1227 Ziprasidone HCl 60 MG CAPSULE 1 CAP PO BID MENTAL HEALTH (Reported) Entered as Reported by Lj Arriaga on 11/16/16 1432 Scheduled PRN Medications Albuterol Sulfate (Proventil Hfa) 90 MCG HFA.AER.AD 2 PUF INH Q4 PRN ASTHMA #1 INHAL Prescribed by Miki Garcia DO on 01/18/17 Albuterol Sulfate (Ventolin Hfa) 90 MCG HFA.AER.AD 2 PUF INH Q4-6 PRN PRN wheeze #1 INHAL Prescribed by Reji Pat MD on 08/23/17 Lorazepam 0.5 MG TABLET 1 TAB PO BIDP PRN ANXIETY #60 (Reported) Entered as Reported by Lj Arriaga on 02/11/17 1229 Laboratory Results: Laboratory Tests 09/06/17 0250: Urine Opiates Screen < 100, Methadone Screen < 40, Barbiturate Screen < 60, Ur Phencyclidine Scrn < 6.00, Amphetamines Screen < 100, U Benzodiazepines Scrn < 85, Urine Cocaine Screen < 50, Urine Cannabis Screen < 5.00 09/06/17 0150: Anion Gap 19 H, Estimated GFR > 60, BUN/Creatinine Ratio 15.0, Glucose 132 H, Calcium 10.5 H, Total Bilirubin 1.0, AST 36, ALT 39, Alkaline Phosphatase 52, Total Protein 8.5 H, Albumin 5.1 H, Globulin 3.4, Albumin/Globulin Ratio 1.5, CBC w Diff NO MAN DIFF REQ, RBC 5.34, MCV 87.9, MCH 30.7, MCHC 35.0, RDW 12.7, MPV 7.7, Gran % 67.7, Lymphocytes % 23.0, Monocytes % 7.7, Eosinophils % 0.7, Basophils % 0.9, Absolute Granulocytes 7.5 H, Absolute Lymphocytes 2.6, Absolute Monocytes 0.9 H, Absolute Eosinophils 0.1, Absolute Basophils 0.1, Serum Alcohol < 10.0 Past History Past Medical History Neurological: NONE EENT: NONE Cardiovascular: hyperlipidemia Respiratory: asthma Gastrointestinal: NONE Hepatic: NONE Renal: NONE Musculoskeletal: NONE Psychiatric: anxiety, SCHIZOAFFECTIVE D/O Endocrine: NONE Blood Disorders: NONE Cancer(s): NONE 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 SPECIALIST/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: NONE Past Surgical History Surgical History: non-contributory Psychosocial History Strengths/Capabilities: supportive mother and sister engaged in treatment at [facility] lives independantly Physical Limitations (Interventions): none observed Psychiatric Treatment History Psych Treatment Psychiatric Treatment Yes Inpatient Treatment Yes Outpatient Treatment Yes Location of Treatment [facility] 2009,2011,2012; Currently @ [facility], hx IOP @ [facility] Reason for Treatment sx related to schizophrenia Dates of Treatment multiple, see above Response to Treatment pt responds well to medication but at times struggles to take it consistantly Diagnosis by History: schizoaffective d/o Substance Use/Abuse History Drug Use/Abuse Substances Used/Abused No Substance Abuse Treatment Substance Abuse Treatment Past Substance Abuse [place] No Current Mental Status Mental Status Orientation: Person, Place, Situation Affect: Anxious Speech: Soft Neuro-vegetative: Sleep Disturbance Appearance Appearance- Dress/Hygiene: pt presented in hospital issued scrubs, hygiene appeared adequate Behaviors Thought Process: Tangential Thought Content: Paranoid Memory: Impaired Insight: Fair SI/HI Risk Assessment Past Suicidal Ideation/Attempts No Current Suicidal Ideation/Att No Past Homicidal Ideation/Att: No Current Homicidal Ideation/Attempts No Degree of Intent: None Risk Factors: SA/MH hospitalized, lives alone, male Lethality Ratin (mild) PTSD Checklist PTSD Done? 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 He has had several inpatient hospitalizations with the last being in September 2012. Pt is active at [facility] with Myla Garcia APRN. He is enrolled in groups but is attendance is inconsistant. Pt responds well to medications when he takes them. Pt was in the ED as he reported ran out of his Ziprasidone. When mother brought the unopened bottle to the ED, pt was relieved. Pt denies SI/HI and believes he is safe to go home. Mom is in agreement. See safety plan in presenting illness section. Referrals Cleve Adam MD (PCP/Family)
== END 2017-09-06 10:45 ==
LOC: ERH 01:32
PROVIDERS: Emergency Medicine
DX: F23 Brief psychotic disorder (principal)
CPT/HCPCS: 80307; G0463; G0480; J3490

== ENCOUNTER 2017-09-10 19:44 | Emergency (ER) | payer OTHER, MEDICARE ==
[~2017-09-10] VITALS: Ht 167.6 cm; Wt 77.1 kg
--- NOTE | 2017-09-10 23:17 | ED GENERAL ADULT ---
History of Present Illness General Chief Complaint: General Adult Stated Complaint: "CHEST CONGESTION, SLURRED SPEECH, THATS IT" Source: patient Exam Limitations: no limitations Vital Signs & Intake/Output Vital Signs & Intake/Output Vital Signs Date Time Temp Pulse Resp B/P B/P Pulse O2 O2 Flow FiO2 Mean Ox Delivery Rate 09/10 2353 95 18 109/59 95 Room Air 09/10 2014 99.7 112 18 132/83 96 Room Air ED Intake and Output 09/11 0000 09/10 1200 Intake Total 0 Output Total Balance 0 Intake, Oral 0 Patient 170 lb Weight Weight Reported by Patient Measurement Method Allergies Coded Allergies: aripiprazole (AKATHISIA 09/10/17) Reconcile Medications Albuterol Sulfate (Proventil Hfa) 90 MCG HFA.AER.AD 2 PUF INH Q4 PRN ASTHMA Albuterol Sulfate (Ventolin Hfa) 90 MCG HFA.AER.AD 2 PUF INH Q4-6 PRN PRN wheeze Fenofibrate Nanocrystallized (Fenofibrate) 145 MG TABLET 1 TAB PO DAILY INCREASED CHOLESTEROL Gabapentin 300 MG CAPSULE 1 CAP PO TID UNKNOWN (Reported) Lorazepam 0.5 MG TABLET 1 TAB PO BIDP PRN ANXIETY (Reported) Ziprasidone HCl 60 MG CAPSULE 1 CAP PO BID MENTAL HEALTH (Reported) Triage Note: PT FROM HOME C/O CHEST COLD/CONGESTION. PT DENIES COUGH, ARM NUMBNESS/TINGLING, JAW/BACK PAIN. PT STATESS 3-4 EPISODES OF VOMITING AT HOME PRIOR TO ARRIVAL. PT STATES SYMPTOMS BEGAN TODAY 45 MINS PRIOR TO ARRIVAL PTS HR SLIGHTLY TACHY AT 122, RA 98% 02 WITH NO DISTRESS, LOW GRADE TEMP AT 99.7. PTS SISTER SPOKE TO THIS RN PRIVATELY PRIOR TO SEEING PT AND PTS SISTER STATED THAT PT WAS SEEN HERE IN ED LAST WEEK FOR PSYCH RELATED ISSUES AND SHE BELIEVES HIS MEDICATION NEEDS TO BE ADJUSTED. 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 PT SEEMS OUT OF SORTS, A LITTLE UNKEPT. PT TAKES MULTIVITMINS WELL VITAMIN E MULTIPLE AT A TIME. 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 PT DENIES SI/HI. Triage Nurses Notes Reviewed? yes Onset: Gradual Duration: hour(s): Timing: recent history Injury Environment: home Severity: mild Modifying Factors: Worsens With: other (worse w/meds). Associated Symptoms: "I feel sluggish, tired." HPI: 42 yo gentleman h/o schizophrenia, on geodon, presents with a constellation of symptoms including chest heaviness and pain as well as a feeling of fogginess, associated with some slurred speech this evening. He associates this with his geodon. He has had these symptoms off and on for several days. No focal weakness/facial droop. His discomfort has no radiation. He has no diaphoresis, wheezing, cough. Past History Travel History Traveled to [place] past 21 day No Medical History Any Pertinent Medical History? 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 No Review of Systems Review of Systems Constitutional: Reports: no symptoms. EENTM: Reports: no symptoms. Respiratory: Reports: no symptoms. Cardiovascular: Reports: no symptoms. GI: Reports: no symptoms. Genitourinary: Reports: no symptoms. Musculoskeletal: Reports: no symptoms. Skin: Reports: no symptoms. Neurological/Psychological: Reports: no symptoms. Hematologic/Endocrine: Reports: no symptoms. Immunologic/Allergic: Reports: no symptoms. All Other Systems: Reviewed and Negative Physical Exam Physical Exam General Appearance: well developed/nourished, no apparent distress Head: atraumatic, normal appearance Eyes: Bilateral: normal appearance, PERRL, EOMI. Ears, Nose, Throat: normal pharynx, normal ENT inspection Neck: normal inspection, supple, full range of motion Respiratory: normal breath sounds, chest non-tender, no respiratory distress, quiet respiration, lungs clear Cardiovascular: regular rate/rhythm Gastrointestinal: normal bowel sounds, soft, non-tender, no organomegaly Back: normal inspection, normal range of motion Extremities: normal inspection, normal capillary refill, normal range of motion, no edema Neurologic/Psych: no motor/sensory deficits, awake, alert, oriented x 3, flat affect Reflexes: 0: bicep (R), bicep (L), knee (R), knee (L). Skin: intact, normal color Core Measures ACS in differential dx? No CVA/TIA Diagnosis: No Sepsis Present: No Sepsis Focused Exam Completed? No Progress Differential Diagnoses I considered the following diagnoses in my evaluation of the patient: med side effect vs other i doubt cardiac issues / neurologic issues. Plan of Care: Orders Procedure Date/time Status TROPONIN LEVEL 09/11 2017 Complete LIPASE 09/11 2017 Complete HEPATIC FUNCTION PANEL 09/11 2017 Complete CBC WITHOUT DIFFERENTIAL 09/11 2017 Complete BASIC METABOLIC PANEL 09/11 2017 Complete AMYLASE 09/11 2017 Complete EKG 09/10 1949 Active Laboratory Tests 09/11/17 0009: Anion Gap 14, Estimated GFR > 60, BUN/Creatinine Ratio 13.3, Glucose 111 H, Calcium 9.7, Total Bilirubin 0.7, Direct Bilirubin 0.4, AST 27, ALT 33, Alkaline Phosphatase 41, Troponin I < 0.01, Total Protein 7.0, Albumin 4.3, Amylase 40, Lipase 117, CBC w Diff NO MAN DIFF REQ, RBC 4.80, MCV 89.3, MCH 30.8, MCHC 34.5, RDW 12.6, MPV 7.6, Gran % 71.7, Lymphocytes % 19.4 L, Monocytes % 6.9, Eosinophils % 1.1, Basophils % 0.9, Absolute Granulocytes 5.6, Absolute Lymphocytes 1.5, Absolute Monocytes 0.5, Absolute Eosinophils 0.1, Absolute Basophils 0.1 Diagnostic Imaging: Viewed by Me: Radiology Read, CT Scan. Discussed w/RAD: Radiology Read, CT Scan. Radiology Impression: PATIENT: NITA ZUNIGA JR PRESENT AGE: 42 PATIENT ACCOUNT NO: [id number] : 76 LOCATION: [facility] ORDERING PHYSICIAN: Geronimo Pat MD SERVICE DATE: 09/11/17 EXAM TYPE: CAT - CT HEAD WO IV CONTRAST EXAMINATION: CT HEAD WITHOUT CONTRAST CLINICAL INFORMATION: Slurred speech COMPARISON: None. TECHNIQUE: Contiguous axial imaging was performed from the skull base to vertex without intravenous contrast. DLP: 701 mGy-cm. FINDINGS: There is no evidence of acute intracranial hemorrhage or territorial infarction. No abnormal mass effect or midline shift is seen. Mc to white matter differentiation is well preserved. No extra-axial fluid collections are identified. No hydrocephalus. No significant volume loss. There is no abnormal attenuation within the brain parenchyma. The osseous structures and soft tissues are normal. The mastoid air cells and visualized portions of the paranasal sinuses are well aerated. IMPRESSION: No acute intracranial pathology. DICTATED BY: Aryan Balbuena MD DATE/TIME DICTATED:27 STUDIO DESIGNER:TING DATE/TIME TRANSCRIBED:09/11/1727 CONFIDENTIAL, DO NOT COPY WITHOUT APPROPRIATE AUTHORIZATION. <Electronically signed in Other Vendor System> SIGNED BY: Aryan Balbuena MD 09/11/1731, PATIENT: NITA ZUNIGA JR PRESENT AGE: 42 PATIENT ACCOUNT NO: [id number] : 76 LOCATION: [facility] ORDERING PHYSICIAN: Geronimo Pat MD SERVICE DATE: 09/11/17 EXAM TYPE: RAD - XRY- PORTABLE CHEST XRAY EXAMINATION: XR PORTABLE CHEST CLINICAL INFORMATION: Chest pain COMPARISON: 01/22/2016 TECHNIQUE: Portable frontal view of the chest was obtained. FINDINGS: The lungs are well expanded. There is no focal consolidation , edema, or effusion. No pneumothorax. The cardiomediastinal silhouette is within normal limits. No acute osseous abnormality. IMPRESSION: No acute pulmonary findings. DICTATED BY: Aryan Balbuena MD DATE/TIME DICTATED:27 STUDIO DESIGNER:TING DATE/TIME TRANSCRIBED:09/11/1727 CONFIDENTIAL, DO NOT COPY WITHOUT APPROPRIATE AUTHORIZATION. <Electronically signed in Other Vendor System> SIGNED BY: Aryan Balbuena MD 09/11/1731 Initial ED EKG: nsr, no acute changes Departure Departure Disposition: HOME OR SELF CARE Condition: Stable Clinical Impression Primary Impression: Chest pain Secondary Impressions: Dizziness, Medication side effect Referrals: Cleve Adam MD (PCP/Family) Departure Forms: Customer Survey General Discharge Information Comments 09/11/17, 1:14am.... pt resting comfortably... had labs drawn >3 hours from symptoms. Chest pain free in ED. pt has close follow up with his psychiatry team for medication readjustment. Critical Care Note Critical Care Note Critical Care Time: non-applicable
[2017-09-10 23:53] VITALS: BP 109/59
[2017-09-11 00:19] LABS: ABSOLUTE BASOPHIL COUNT 0.1 /CUMM (0.0-0.2); ABSOLUTE EOSINOPHIL COUNT 0.1 /CUMM (0.0-0.7); ABSOLUTE GRANULOCYTE CT 5.6 /CUMM (1.4-6.5); ABSOLUTE LYMPH COUNT 1.5 /CUMM (1.2-3.4); ABSOLUTE MONOCYTE COUNT 0.5 /CUMM (0.10-0.60); BASOPHIL % 0.9 % (0.0-2.0); EOSINOPHIL % 1.1 % (0-5); GRANULOCYTE % 71.7 % (42.2-75.2); HEMATOCRIT 42.9 % (42-52); MEAN CORPUSCULAR HGB 30.8 PG (27.0-31.0); MEAN CORPUSCULAR HGB CONC 34.5 G/DL (33.0-37.0); MEAN CORPUSCULAR VOLUME 89.3 FL (80.0-94.0); MEAN PLATELET VOLUME 7.6 FL (7.4-10.4); PLATELET COUNT 226 /CUMM (130-400); RBC DISTRIBUTION WIDTH 12.6 % (11.5-14.5); WHITE BLOOD CELL COUNT 7.9 /CUMM (4.8-10.8)
--- NOTE | 2017-09-11 00:32 | RADIOLOGY REPORT ---
EXAMINATION: XR PORTABLE CHEST CLINICAL INFORMATION: Chest pain COMPARISON: 01/22/2016 TECHNIQUE: Portable frontal view of the chest was obtained. FINDINGS: The lungs are well expanded. There is no focal consolidation, edema, or effusion. No pneumothorax. The cardiomediastinal silhouette is within normal limits. No acute osseous abnormality. IMPRESSION: No acute pulmonary findings.
--- NOTE | 2017-09-11 00:32 | CT SCAN REPORT ---
EXAMINATION: CT HEAD WITHOUT CONTRAST CLINICAL INFORMATION: Slurred speech COMPARISON: None. TECHNIQUE: Contiguous axial imaging was performed from the skull base to vertex without intravenous contrast. DLP: 701 mGy-cm. FINDINGS: There is no evidence of acute intracranial hemorrhage or territorial infarction. No abnormal mass effect or midline shift is seen. Mc to white matter differentiation is well preserved. No extra-axial fluid collections are identified. No hydrocephalus. No significant volume loss. There is no abnormal attenuation within the brain parenchyma. The osseous structures and soft tissues are normal. The mastoid air cells and visualized portions of the paranasal sinuses are well aerated. IMPRESSION: No acute intracranial pathology.
== END 2017-09-11 01:21 ==
LOC: ERH 19:44
PROVIDERS: Pediatrics
DX: T50.901A Poisoning by unspecified drugs, medicaments and biological substances, accidental (unintentional), initial encounter (principal); R07.89 Other chest pain; R42 Dizziness and giddiness
CPT/HCPCS: 71045; 93005; 93010